=== PATIENT | male | born 1980 | race Caucasian/White ===

== ENCOUNTER 2018-04-19 15:43 | Emergency (ER) | payer OTHER, MEDICARE ==
[~2018-04-19] VITALS: Ht 172.7 cm; Wt 108.9 kg
[~2018-04-19 15:43] MED LIST: ATIVAN1 MG PO; BENZTROPINE ME0.5 MG PO; CRESTOR20 M2 PO; FLUOXETINE HYDR20 MG; JANUMET 1000 MG1 TAB PO; JANUMET 50-1,01 EACH PO; LANTUS SOL100 UNIT/1 SC; LANTUS SOLOS100 U/ML SC; LORAZEPAM1 MG PO; LOVAZA1 GM PO; OMEGA-3 ACID ETH1 GM PO; PRAVASTATIN SOD40 M1 PO; RISPERIDONE3 MG PO; RISPERIDONE4 MG PO; SERTRALINE HCL50 MG PO; SERTRALINE HYDR50 MG PO; TRICOR 48MG48 MG PO
[2018-04-19 16:08] LABS: ABSOLUTE BASOPHIL COUNT 0 /CUMM (0.0-0.2); ABSOLUTE EOSINOPHIL COUNT 0 /CUMM (0.0-0.7); ABSOLUTE GRANULOCYTE CT 5.9 /CUMM (1.4-6.5); ABSOLUTE LYMPH COUNT 0.5 /CUMM (1.2-3.4); ABSOLUTE MONOCYTE COUNT 0.7 /CUMM (0.10-0.60); BASOPHIL % 0.2 % (0.0-2.0); EOSINOPHIL % 0.3 % (0-5); GRANULOCYTE % 82.5 % (42.2-75.2); MEAN CORPUSCULAR HGB 27.9 PG (27.0-31.0); MEAN CORPUSCULAR HGB CONC 34.4 G/DL (33.0-37.0); MEAN CORPUSCULAR VOLUME 81.1 FL (80.0-94.0); MEAN PLATELET VOLUME 8.9 FL (7.4-10.4); PLATELET COUNT 270 /CUMM (130-400); RED BLOOD CELL CT 3.95 /CUMM (4.70-6.10); WHITE BLOOD CELL COUNT 7.1 /CUMM (4.8-10.8)
--- NOTE | 2018-04-19 17:32 | ED GENERAL ADULT ---
History of Present Illness General Chief Complaint: General Adult Stated Complaint: "I JUST FEEL REALLY ILL" Source: patient, old records Exam Limitations: no limitations Vital Signs & Intake/Output Vital Signs & Intake/Output Vital Signs Date Time Temp Pulse Resp B/P B/P Pulse O2 O2 Flow FiO2 Mean Ox Delivery Rate 04/19 1545 99.9 120 18 137/82 100 Room Air Allergies Coded Allergies: ziprasidone (From GUERRERO) (AGGRESSIVE, HEARS VOICES 03/28/16) Reconcile Medications Doxycycline Hyclate 100 MG TABLET 1 TAB PO BID lyme Insulin Glargine,Hum.rec.anlog (Lantus Solostar) 100 UNIT/1 ML INSULN.PEN 15 UNIT SC QAM DIABETES (Reported) Lorazepam 1 MG TAB 1 TAB PO BID ANXIETY (Reported) [place]-3 Acid Ethyl Esters 1 GM CAPSULE 2 CAP PO BID CHOLESTEROL (Reported) Risperidone 3 MG TAB 1 TAB PO QAM SCHIZOAFFECTIVE DISORDER Risperidone 4 MG TAB 1 TAB PO QPM SCHIZOAFFECTIVE Rosuvastatin Calcium (Crestor) 20 MG TABLET 1 TAB PO DAILY CHOLESTEROL ( Reported) Sertraline HCl 50 MG TABLET 1 TAB PO DAILY MENTAL HEALTH (Reported) Sitagliptin Phos/Metformin HCl (Janumet 50-1,000 MG Tablet) 1 EACH TABLET 1 TAB PO BID DIABETES (Reported) Triage Note: 37 YEAR OLD MALE STATES THAT HE WAS SEEN HERE MONDAY FOR NOT FEELING WELL, STATES THAT HE DOES NOT FEEL BETTER AND JUST ACHES ALL OVER, APPETITE POOR, JUST WANTS TO SLEEP, FEELS DEHYDRATED EVEN THOUGH HE DRINKS A LOT. IDDM FS 339 AT TRIAGE. PT TAKES SEROQUEL/RESPERIDOL/ATIVAN/LISINOPRIL TAKES ALL MEDS PRESCRIBED. TEMP 99.9 HR 120'S AT TRIAGE Triage Nurses Notes Reviewed? yes Onset: Gradual Duration: week(s): Timing: recent history Injury Environment: home Severity: moderate HPI: 37-year-old male with history of diabetes, schizoaffective disorder presents to emergency department complaining of persistent malaise and joint pains x >1 week. Patient was seen and evaluated here on 04/15 for similar symptoms and reports that he has had no improvement. He reports intermittent fevers, chills, sweats. Dehydrated and fatigued. Patient also reports elevated blood sugars. He reports migratory arthralgias, currently joint pains in bilateral elbows however when he was seen here a few days ago he had neck pains. Patient reports 2 episodes of vomiting in the past week. He reports an 18 pound weight loss. Patient had Lyme titer drawn and was informed that the test was negative. Patient denies cough, abdominal pain, rash, sore throat, ear pain or urinary symptoms. (Ghazala Steinberg) Past History Travel History Traveled to [place] past 21 day No Medical History Any Pertinent Medical History? 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 No (Ghazala Steinberg) Review of Systems Review of Systems Constitutional: Reports: see HPI. EENTM: Reports: no symptoms. Respiratory: Reports: no symptoms. Cardiovascular: Reports: no symptoms. GI: Reports: see HPI. Genitourinary: Reports: no symptoms. Musculoskeletal: Reports: see HPI. Skin: Reports: no symptoms. Neurological/Psychological: Reports: no symptoms. Hematologic/Endocrine: Reports: no symptoms. Immunologic/Allergic: Reports: no symptoms. All Other Systems: Reviewed and Negative (Ghazala Steinberg) Physical Exam Physical Exam General Appearance: well developed/nourished, no apparent distress, alert, awake Head: atraumatic, normal appearance Eyes: Bilateral: normal appearance. Ears, Nose, Throat: normal pharynx, hearing grossly normal Neck: normal inspection, supple, full range of motion, lymphadenopathy (R), lymphadenopathy (L) Respiratory: normal breath sounds, no respiratory distress, lungs clear Cardiovascular: regular rate/rhythm Gastrointestinal: normal bowel sounds, soft, non-tender, no organomegaly Back: normal inspection, normal range of motion Extremities: normal inspection, tenderness to bilateral elbows Neurologic/Psych: awake, alert, oriented x 3 Skin: intact, normal color, warm/dry Core Measures ACS in differential dx? No CVA/TIA Diagnosis: No Sepsis Present: No Sepsis Focused Exam Completed? No (Ghazala Steinberg) Progress Differential Diagnoses I considered the following diagnoses in my evaluation of the patient: [Lyme disease, septic arthritis, sepsis, endocarditis, pneumonia, UTI, viral syndrome, mono] Plan of Care: Orders Procedure Date/time Status BLOOD CULTURE 04/19 1731 Active Add-on Test (ER Only) 04/19 1639 Active Add-on Test (ER Only) 04/19 1631 Active TSH REFLEX 04/19 1559 Complete MONOSPOT TEST 04/19 1559 Complete MAGNESIUM 04/19 155 Complete URINALYSIS 04/19 155 Complete COMPREHENSIVE METABOLIC PANEL 04/19 155 Complete CBC WITHOUT DIFFERENTIAL 04/19 155 Complete Current Medications Sig/Ron Start time Last Medication Dose Stop Time Status Admin Sodium Chloride 1,000 ML BOLUS ONE 04/19 174 AC 04/19 (Normal Saline 0.9%) 04/19 1844 1759 Laboratory Tests 04/19/18 1606: Urine Color YEL, Urine Clarity CLEAR, Urine pH 6.5, Ur Specific [place] 1.010, Urine Protein NEG, Urine Ketones NEG, Urine Nitrite NEG, Urine Bilirubin NEG, Urine Urobilinogen 0.2, Ur Leukocyte Esterase NEG, Ur Microscopic EXAM NOT REQUIRED, Urine Hemoglobin NEG, Urine Glucose 500 H 04/19/18 1559: Anion Gap 14, Estimated GFR > 60, BUN/Creatinine Ratio 8.3, Glucose 324 H, Calcium 8.9, Magnesium 1.6, Total Bilirubin 0.7, AST 43, ALT 64, Alkaline Phosphatase 81, Total Protein 6.7, Albumin 3.8, Globulin 2.9, Albumin/Globulin Ratio 1.3, TSH &T3 &Free T4 Intrp 0.483, CBC w Diff NO MAN DIFF REQ, RBC 3.95 L , MCV 81.1, MCH 27.9, MCHC 34.4, RDW 12.0, MPV 8.9, Gran % 82.5 H, Lymphocytes % 7.0 L, Monocytes % 10.0 H, Eosinophils % 0.3, Basophils % 0.2, Absolute Granulocytes 5.9, Absolute Lymphocytes 0.5 L, Absolute Monocytes 0.7 H, Absolute Eosinophils 0, Absolute Basophils 0, Infectious [place] Titer NEGATIVE Microbiology 04/19 1830 BLOOD: Blood Culture - RECD 04/19 1815 BLOOD: Blood Culture - RECD Patient's hyperglycemia and tachycardia treated with IV fluids here in the emergency department. Given patient's low-grade fever, tachycardia, migratory arthralgias there is a suspicion for Lyme disease. He had no known tick siting and no rash however disease is still possible. Initial Lyme titer may be normal during active Lyme disease. Discussed all findings with attending Dr. Sánchez, will initiate Lyme treatment and outpatient follow-up with his primary care doctor. Blood cultures are pending. No heart murmur, no petechial rash, low risk factors, low suspicion for acute endocarditis in this patient. The patient agrees with the plan of care. Vital signs have improved at time of discharge. Diagnostic Imaging: Viewed by Me: Radiology Read. Discussed w/RAD: Radiology Read. CXR Impression: PATIENT: DANA BEASLEY JR PRESENT AGE: 37 PATIENT ACCOUNT NO: [id number] : 78 LOCATION: [facility] ORDERING PHYSICIAN: Carrie FOURNIER SERVICE DATE: 04/19/18 EXAM TYPE: RAD - XRY-CHEST XRAY, TWO VIEWS EXAMINATION: XR CHEST CLINICAL INFORMATION: Malaise. COMPARISON: None TECHNIQUE: 2 views of the chest were obtained. FINDINGS: No significant abnormality is noted involving the heart, lungs, mediastinum, bony thorax or soft tissues. IMPRESSION: Unremarkable examination. DICTATED BY: Damian Hernández MD DATE/TIME DICTATED:04/19/181749 DEHYDROGENATION OPERATOR HEAD:SALOMÓN DATE/ TIME TRANSCRIBED:04/19/181749 CONFIDENTIAL, DO NOT COPY WITHOUT APPROPRIATE AUTHORIZATION. <Electronically signed in Other Vendor System> SIGNED BY: Damian Hernández MD 04/19/181752 Initial ED EKG: none (Brittany FOURNIER,Ghazala Mckinney) Departure Departure Disposition: HOME OR SELF CARE Condition: Stable Clinical Impression Primary Impression: Arthralgia Secondary Impressions: Fever Referrals: Janina Pepe APRN (PCP/Family) Additional Instructions: Begin antibiotics as prescribed. Follow-up with your primary care doctor. Return if worsening symptoms or concerns. Please note that there might be incidental findings in your evaluation that are unrelated to the current emergency department visit. Please notify your primary care doctor about this emergency department visit in order to obtain and review all of the testing performed so that these incidental findings can be monitored as needed. If you had an x-ray performed, please understand that some fractures may not be seen on the initial set of x-rays. If your symptoms persist you might need a repeat set of x-rays to check for such a fracture. If you had a laceration evaluated, please understand that foreign bodies such as glass or wood may not be visible to the naked eye or on plain x-rays. If the wound becomes red, swollen, increasingly more painful or if there is any drainage from the wound, please have it reevaluated by a physician for the possibility of a retained foreign body. If you're unable to follow up as outlined in the discharge instructions please return to the emergency department. Thank you for choosing the [facility] Emergency Department for your care. It was a pleasure to serve you today. Departure Forms: Customer Survey General Discharge Information Prescriptions: Current Visit Scripts Doxycycline Hyclate 1 TAB PO BID #42 TAB (Brittany FOURNIER,Ghazala Mckinney) PA/MICROFILM OPERATOR Co-Sign Statement Statement: ED Attending supervision documentation- [] I saw and evaluated the patient. I have also reviewed all the pertinent lab results and diagnostic results. I agree with the findings and the plan of care as documented in the PA's/MICROFILM OPERATOR's documentation. [X] I have reviewed the ED Record and agree with the PA's/MICROFILM OPERATOR's documentation. [] Additions or exceptions (if any) to the PAs/MICROFILM OPERATOR's note and plan are summarized below: [] (Gonzalo HENRY,Beka Paez) Critical Care Note Critical Care Note Critical Care Time: non-applicable (Ghazala Steinberg)
--- NOTE | 2018-04-19 17:53 | RADIOLOGY REPORT ---
EXAMINATION: XR CHEST CLINICAL INFORMATION: Malaise. COMPARISON: None TECHNIQUE: 2 views of the chest were obtained. FINDINGS: No significant abnormality is noted involving the heart, lungs, mediastinum, bony thorax or soft tissues. IMPRESSION: Unremarkable examination.
[2018-04-19] MEDS ORDERED: DOXYCYCLINE HY100 M4 PO (18:34)
[2018-04-19 18:47] VITALS: BP 140/87
== END 2018-04-19 18:49 ==
LOC: ERH 15:43
PROVIDERS: Emergency Medicine
DX: M25.50 Pain in unspecified joint (principal); R50.9 Fever, unspecified; R53.81 Other malaise; M54.2 Cervicalgia; R11.10 Vomiting, unspecified; R53.83 Other fatigue; E11.9 Type 2 diabetes mellitus without complications
CPT/HCPCS: 71046; 81003; 87040

== ENCOUNTER 2018-04-23 17:03 | Emergency (ER) | payer OTHER, MEDICARE ==
[~2018-04-23] VITALS: Ht 172.7 cm; Wt 107.5 kg
[~2018-04-23 17:03] MED LIST changes: +DOXYCYCLINE HY100 M4 PO
--- NOTE | 2018-04-23 20:23 | ED GENERAL ADULT ---
History of Present Illness General Chief Complaint: General Adult Stated Complaint: PT WAS SIB BY DR FOR CHECKING FOR MENINGITIS Source: patient Exam Limitations: no limitations Vital Signs & Intake/Output Vital Signs & Intake/Output Vital Signs Date Time Temp Pulse Resp B/P B/P Pulse O2 O2 Flow FiO2 Mean Ox Delivery Rate 04/23 2343 98.0 78 18 130/78 99 Room Air 04/23 2035 99.0 81 18 151/87 99 Room Air 04/23 1714 100.2 108 16 128/84 98 Room Air ED Intake and Output 04/24 0000 04/23 1200 Intake Total 1100 Output Total Balance 1100 Intake, IV 1100 Intake, Oral 0 Patient 237 lb Weight Weight Reported by Patient Measurement Method Allergies Coded Allergies: ziprasidone (From GUERRERO) (AGGRESSIVE, HEARS VOICES 03/28/16) Reconcile Medications Doxycycline Hyclate 100 MG TABLET 1 TAB PO BID lyme Insulin Glargine,Hum.rec.anlog (Lantus Solostar) 100 UNIT/1 ML INSULN.PEN 15 UNIT SC QAM DIABETES (Reported) Lorazepam 1 MG TAB 1 TAB PO BID ANXIETY (Reported) [place]-3 Acid Ethyl Esters 1 GM CAPSULE 2 CAP PO BID CHOLESTEROL (Reported) Risperidone 3 MG TAB 1 TAB PO QAM SCHIZOAFFECTIVE DISORDER Risperidone 4 MG TAB 1 TAB PO QPM SCHIZOAFFECTIVE Rosuvastatin Calcium (Crestor) 20 MG TABLET 1 TAB PO DAILY CHOLESTEROL ( Reported) Sertraline HCl 50 MG TABLET 1 TAB PO DAILY MENTAL HEALTH (Reported) Sitagliptin Phos/Metformin HCl (Janumet 50-1,000 MG Tablet) 1 EACH TABLET 1 TAB PO BID DIABETES (Reported) Triage Note: PT WAS SEEN TWICE HERE IN THE PAST TWO WEEKS. PT WENT TO SEE HIS PCP AND WAS TOLD HE DID NOT HAVE LYME DISEASE. PT STATES HIS DRAp TOLD HIM HE NEEDED TO BE CHECKED FOR MENNINGITIS. PT STATES HE HAS PAIN IN HIS NECK WHEN HE PUTS HIS CHIN TO HIS CHEST AND HE IS HAVING RIGHT SHOULDER PAIN. Triage Nurses Notes Reviewed? yes HPI: 37-year-old man with past medical history of diabetes mellitus and schizoaffective disorder sent in by his physician for evaluation of "meningitis ". Patient was previously seen in the [place] ED twice over the past several weeks. On 04/15/18 he was seen for evaluation of a syncopal episode at urgent care. He was apparently complaining of 3 weeks of shoulder and neck pain with associated fatigue. He apparently syncopized during a blood draw for suspected Lyme disease. He drove himself to the [place] ED after the event and denied any loss of consciousness. X-ray of the shoulder was unremarkable Lyme titer was drawn and was negative. Patient was discharged home with instruction to follow-up with his PCP and to take Motrin as needed for shoulder pain. Patient was again seen in the [place] ED on 04/19/18 for persistence of symptoms and worsening aches and pains all over his body with poor appetite. Labs demonstrated a glucose of 324 with tachycardia for which she was given intravenous fluids. He was empirically treated for Lyme disease with a 3 week course of doxycycline. Recently he states that his joints all hurt that he just feels "really sick". He was recently started on pravastatin by his PCP for dyslipidemia several weeks ago and self discontinue it approximately 1 week ago. (Rohit Pepper MD) Past History Travel History Traveled to [place] past 21 day No Medical History Any Pertinent Medical History? 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 No (Rohit Pepper MD) Review of Systems Review of Systems Constitutional: Reports: see HPI. (Rohit Pepper MD) Physical Exam Physical Exam General Appearance: well developed/nourished, no apparent distress, alert, anxious, comfortable Comments: General - well developed, well nourished obese young man in no acute distress HEENT - NCAT, PERRL, EOMI, anicteric sclera Neck- Supple, no JVD/HJR, no bruits, trachea midline, thyroid normal Cardio - S1, S2 w/o murmurs/gallops/rubs; regular rate and rhythm Resp - Clear to auscultation bilaterally GI - Soft, nontender, nondistended, Romero sign negative, bowel sounds present Neuro - Awake and alert, CN II - XII grossly intact, speech/sensation/ coordination intact, strength 5/54, face symmetric, speech fluent, neck free range of motion, no meningismus, no photophobia Extremities - No edema, pulses intact Core Measures ACS in differential dx? No CVA/TIA Diagnosis: No Sepsis Present: No Sepsis Focused Exam Completed? No (Rohit Pepper MD) Progress Differential Diagnoses I considered the following diagnoses in my evaluation of the patient: Plan of Care: Orders Procedure Date/time Status LACTIC ACID 04/23 2124 Complete COMPREHENSIVE METABOLIC PANEL 04/23 2124 Complete CBC WITHOUT DIFFERENTIAL 04/23 2124 Complete Laboratory Tests 04/24/18 0024: Lactic Acid Cancelled 04/23/180: Anion Gap 11, Estimated GFR > 60, BUN/Creatinine Ratio 8.3, Glucose 146 H, Lactic Acid 1.5, Calcium 9.4, Total Bilirubin 0.6, AST 32, ALT 65, Alkaline Phosphatase 104, Total Protein 6.9, Albumin 3.7, Globulin 3.2, Albumin/Globulin Ratio 1.2, CBC w Diff NO MAN DIFF REQ, RBC 3.74 L, MCV 82.2, MCH 27.6, MCHC 33.5, RDW 12.3, MPV 8.6, Gran % 75.4 H, Lymphocytes % 14.9 L, Monocytes % 8.3, Eosinophils % 1.1, Basophils % 0.3, Absolute Granulocytes 5.4, Absolute Lymphocytes 1.1 L, Absolute Monocytes 0.6, Absolute Eosinophils 0.1, Absolute Basophils 0 Initial ED EKG: none Comments: Patient feels mildly improved after receiving intravenous hydration. Vital signs remain within normal limits. Physical examination demonstrates normal cardiopulmonary examination and a complete neurologic examination is benign. Labs including CBC and serum chemistry are within normal limits. Patient was given 1 g of intravenous acetaminophen that improved his muscle aches and pains. Clinically patient appears to have had an adverse reaction to the statin medication he was recently started on and subsequently self discontinued. Patient was advised to stay off this medication and to follow-up with his PCP for further evaluation and control of his dyslipidemia. Patient was encouraged to continue his empiric dose of doxycycline in the meantime. (Rohit Pepper MD) Departure Departure Disposition: HOME OR SELF CARE Condition: Stable Clinical Impression Primary Impression: Adverse drug reaction Referrals: Janina Pepe APRN (PCP/Family) Additional Instructions: Stop taking your statin drug. Continue taking her doxycycline as previously prescribed. Stay hydrated, continue to take your ibuprofen as needed for your muscle aches and pains. avoid alcohol while taking this medication. Stay out of the sun while you are taking the doxycycline, be sure to take this pill with a large glass of water. Call 911 or return to the ED should your symptoms worsen. Departure Forms: Customer Survey General Discharge Information (Rohit Pepper MD) Resident Co-Sign Statement Statement: ED Attending supervision documentation- [] I saw and evaluated the patient. I have also reviewed all the pertinent lab results and diagnostic results. I agree with the findings and the plan of care as documented in the Resident's documentation. [X] I have reviewed the ED Record and agree with the Resident's documentation. [] Additions or exceptions (if any) to the Resident's note and plan are summarized below: [] (Gonzalo HENRY,Beka Paez) Critical Care Note Critical Care Note Critical Care Time: non-applicable (Rohit Pepper MD)
[2018-04-23 22:11] LABS: ABSOLUTE BASOPHIL COUNT 0 /CUMM (0.0-0.2); ABSOLUTE EOSINOPHIL COUNT 0.1 /CUMM (0.0-0.7); ABSOLUTE GRANULOCYTE CT 5.4 /CUMM (1.4-6.5); ABSOLUTE LYMPH COUNT 1.1 /CUMM (1.2-3.4); ABSOLUTE MONOCYTE COUNT 0.6 /CUMM (0.10-0.60); BASOPHIL % 0.3 % (0.0-2.0); EOSINOPHIL % 1.1 % (0-5); GRANULOCYTE % 75.4 % (42.2-75.2); HEMATOCRIT 30.7 % (42-52); MEAN CORPUSCULAR HGB 27.6 PG (27.0-31.0); MEAN CORPUSCULAR HGB CONC 33.5 G/DL (33.0-37.0); MEAN CORPUSCULAR VOLUME 82.2 FL (80.0-94.0); MEAN PLATELET VOLUME 8.6 FL (7.4-10.4); RBC DISTRIBUTION WIDTH 12.3 % (11.5-14.5); RED BLOOD CELL CT 3.74 /CUMM (4.70-6.10); WHITE BLOOD CELL COUNT 7.2 /CUMM (4.8-10.8)
[2018-04-23 22:12] LABS: PLATELET COUNT 417 /CUMM (130-400)
[2018-04-23 23:43] VITALS: BP 130/78
== END 2018-04-23 23:44 ==
LOC: ERH 17:03
PROVIDERS: Internal Medicine Interventional Cardiology
DX: T50.905A Adverse effect of unspecified drugs, medicaments and biological substances, initial encounter (principal); M25.50 Pain in unspecified joint
CPT/HCPCS: 96365; 96375; J0131; J2405